=== PATIENT | male | born 1985 | race Caucasian/White ===

== ENCOUNTER 2020-08-15 07:53 | Emergency (ER) | payer OTHER, SELFPAY ==
[2020-08-15] VITALS (35 sets, daily range): BP systolic 108–163; BP diastolic 61–108; PULSE 67–101; RESP 12–22; TEMP 37; O2SAT 96–100
--- NOTE | ~2020-08-15 | CT_ITS ---
EXAMINATION: CTA chest DATE: 08/15/2020 10:24 INDICATION: Chest pain for 2 days, upper left side, radiating to back. Hypertension. TECHNIQUE: Computed tomography angiography (CTA) of the chest was performed with 100 mL Omnipaque-350 intravenous contrast timed to evaluate the pulmonary arteries. Coronal maximum intensity projection 3D-reconstructions were created by the technologist. Automated exposure control and iterative reconst ruction technique were employed. Exam dose: 955.71 mGy-cm total exam DLP. COMPARISON: 08/25/2020 portable AP chest FINDINGS: There is diagnostic contrast enhancement of the pulmonary arteries and no evidence of pulmo nary embolism. There is no thoracic aortic aneurysm or dissection. Normal heart size. No pericardial or pleural effusion. No hilar or mediastinal mass lesion or lymphadenopathy. No pulmonary infiltrate or consolidation or pulmonary mass lesion. The adrenal glands are unremarkable. Very small sliding hiatal hernia. IMPRESSION: No evidence of pulmonary embolism or thoracic aortic aneurysm or dissection Reviewed, dictated and finalized at [facility]. Reviewed, dictated and finalized at [facility]. IMPRESSION: No evidence of pulmonary embolism or thoracic aortic aneurysm or d issection
--- NOTE | ~2020-08-15 | XR_ITS ---
EXAMINATION: XR chest 1V portable DATE: 08/15/2020 08:38 INDICATION: Left upper chest pain. TECHNIQUE: A single frontal view of the chest was obtained. COMPARISON: None. FINDINGS: The chest demonstrates clear lungs without pneumonia, pleural effusion, or pneumothorax. Th e heart size is normal. IMPRESSION: 1. No acute cardiopulmonary disease. Reviewed, dictated and finalized at [facility].
--- NOTE | 2020-08-15 08:08 | ECG_ITS ---
Measurements Intervals [place] Rate: 95 P: 59 WI: 229 QRS: -6 QRSD: 125 T: 20 QT: 362 QTc: 456 Interpretive Statements SINUS RHYTHM WITH FIRST DEGREE AV BLOCK INTRAVENTRICULAR CONDUCTION DELAY BORDERLINE T WAVE ABNORMALITY- INFERIOR LEADS ABNORMAL ECG Electronically Signed On 08-15-2020 8:11:54 CDT by Balta Odom D.O.
--- NOTE | 2020-08-15 08:09 | ED.CHESTPAIN ---
HPI - Chest Pain General Chief Complaint: Chest Pain Stated Complaint: chest pain/sob Time Seen by Provider: 08/15/20 07:58 Source: patient Mode of arrival: ambulatory Limitations: no limitations History of Present Illness HPI narrative: This patient is a 35 year old male who presents for evaluation of left chest pain. Patient reports intermittent left chest pain for 2 days. He describes pain has pressure and sharp. He reports his pain seems worse with any movement or activity. He reports prior to arrival he was feeling his heart racing with worsening chest pain, and he states his watch showed his HR of 160. He states this pain radiates to his left shoulder and left neck. He also has associated sob and coughing makes his pain worsen. HE notes that this pain feels similar to when he had costochondritis years ago. PAin currently is 4/10. Related Data Allergies Allergy/AdvReac Type Severity Reaction Status Date / Time cefaclor AdvReac Severe Verified 06/27/17 17:16 Review of Systems Review of Systems: All systems reviewed & are unremarkable except as noted in HPI and below ENT: Reports dizziness Cardiovascular: Cardiovascular: Reports chest pain, Reports rapid heart rate and Reports radiating jaw, neck or arm pain Respiratory: Respiratory: Reports cough and Reports dyspnea Gastrointestinal: Gastrointestinal: Denies abdominal pain, Reports nausea and Denies vomiting PMFSH Past Medical History Medical History (Updated 08/15/20 @ 12:13 by Viji Mcdaniel MD) Hyperlipidemia Surgical History Surgical History (Updated 08/15/20 @ 08:10 by Viji Mcdaniel MD) No significant past surgical history Social History Social History (Updated 08/15/20 @ 08:10 by Viji Mcdaniel MD) Smoking status: Never smoker Substance use: never Exam Const: General: alert Nutritional Appearance: obese Orientation/consciousness: patient oriented x3 HENMT: Head: atraumatic General nose exam: No nasal polyps present Mouth: Yes Normal oral and palatal mucosa present, Yes lip normal, Yes oropharynx normal and Yes moist mucous membranes Eyes: EOM: EOMs intact bilaterally Chest: Chest palpation & inspection: tenderness costochondral junction Resp: Effort & Inspection: normal respiratory effort and no retractions Auscultation: clear to auscultation bilaterally Cardio: Rate: regular rate Rhythm: regular rhythm Heart sounds: no murmurs GI: GI Palp: Yes Soft to palpation, No Tenderness to palpation present (GI), No Guarding due to palpation present (GI) and No Rigid due to palpation Skin: General skin exam: normal color Rashes: no rashes Neuro: General: patient oriented x3 and moves all extremities Extrem: General: no pedal edema Psych: Mental Status: mental status grossly normal Affect: normal affect Course Reevaluation(s) Reevaluation #1: Yue states he feels better. I have discussed patient that labs are unremarkable and CT scan unremarkable. THis pain is likely due to costochondritis. Date: 08/15/20 Time: 12:09 Vital Signs Vital signs: Vital Signs Temperature 98.6 F 08/15/20 07:56 Pulse Rate 100 08/15/20 07:56 Respiratory Rate 18 08/15/20 07:56 Blood Pressure 163/108 H 08/15/20 07:56 Pulse Oximetry 99 08/15/20 07:56 Temperature 98.6 F 08/15/20 07:56 Pulse Rate 72 08/15/20 12:01 Respiratory Rate 22 H 08/15/20 12:01 Blood Pressure 139/81 08/15/20 12:01 Pulse Oximetry 100 08/15/20 12:01 MDM - Chest Pain Lab Data Result diagrams: 08/15/20 08:14 08/15/20 08:14 Labs: Lab Results 08/15/20 08/15/20 08/15/20 Range/Units 08:13 08:14 08:14 WBC 7.4 (4.5-10.0) K/mm3 RBC 5.09 (4.6-6.20) M/mm3 Hgb 15.6 (14.0-18.0) g/dL Hct 44.7 (42.0-52.0) % MCV 87.8 (80-100) fl MCH 30.6 (26-34) pg MCHC 34.9 (32-36) g/dl RDW 12.7 (11.5-14.5) % Plt Count 289 (150-375) k/mm3 MPV 8.3 (7.4-10.4)
[2020-08-15] MEDS: ASPIRIN 81 MG CHEWABLE TABLET 324 MG PO (08:18)
[2020-08-15 08:19] LABS: Basophils Percent Auto 0.5 % (0.2-1.2); Eosinophils Absolute Auto 0.2 K/mm3 (0-0.3); Hematocrit 44.7 % (42.0-52.0); Hemoglobin 15.6 g/dL (14.0-18.0); Immature Granulocyte Absolute 0.03 K/mm3 (0.00-0.031); Immature Granulocyte Percent A 0.4 % (0-0.5); Lymphocytes Absolute Auto 1.87 K/mm3 (0.9-3.2); Lymphocytes Percent Auto 25.2 % (18.3-44.2); Mean Corpuscular HGB Conc 34.9 g/dl (32-36); Mean Corpuscular Hemoglobin 30.6 pg (26-34); Mean Corpuscular Volume 87.8 fl (80-100); Mean Platelet Volume 8.3 fl (7.4-10.4); Monocytes Absolute Auto 0.8 K/mm3 (0.1-0.6); Monocytes Percent Auto 10.1 % (2.6-8.5); Neutrophils Absolute Auto 4.6 K/mm3 (1.3-6.7); Neutrophils Percent Auto 61.8 % (45.5-73.1); Platelet Count Result 289 k/mm3 (150-375); Red Blood Count 5.09 M/mm3 (4.6-6.20); Red Cell Distribution Width 12.7 % (11.5-14.5); White Blood Count 7.4 K/mm3 (4.5-10.0)
[2020-08-15] MEDS: NITROGLYCERIN SL 0.4 MG TABLET SUBLINGUAL (08:19)
[2020-08-15 08:28] LABS: Prothrombin Time 12.4 Seconds (11.1-14.7)
[2020-08-15 08:29] LABS: Partial Thromboplastin Time 27.5 SECONDS (22.3-36.8)
[2020-08-15 08:31] LABS: Anion Gap 9 mmol/L (8-16); Blood Urea Nitrogen 14 mg/dL (9-20); Calcium 9.5 mg/dL (8.4-10.2); Carbon Dioxide 29 mmol/L (22-30); Chloride 103 mmol/L (98-107); Estimated CRCL calculation 134 ml/min; Estimated Glomerular Filt Rate > 60; Glucose 115 mg/dL (75-110); Potassium 4.1 mmol/L (3.4-5.0); Sodium 141 mmol/L (137-145)
[2020-08-15 08:42] LABS: Troponin I < 0.012 ng/mL (0.000-0.034)
[2020-08-15 09:49] LABS: D Dimer 0.27 ug/mL (<0.48)
[2020-08-15] MEDS: KETOROLAC 15 MG/ML VIAL (*BKC) IV PUSH (10:04)
[2020-08-15 12:00] LABS: Troponin I < 0.012 ng/mL (0.000-0.034)
== END 2020-08-15 12:05 | disposition home or self-care (01) ==
PROVIDERS: Emergency Provider General Practice; PCP Physician Assistant
DX: R07.9 Chest pain, unspecified (principal); E78.5 Hyperlipidemia, unspecified; I44.0 Atrioventricular block, first degree; I45.9 Conduction disorder, unspecified; R94.31 Abnormal electrocardiogram [ECG] [EKG]
CPT/HCPCS: 36415; 71045; 71275; 80048; 84484; 85025; 85380; 85610; 85730; 93005; 96374; 99284; A9270; J1885; Q9967